=== PATIENT | female | born 1965 | race Caucasian/White ===

== ENCOUNTER → 2016-09-25 | Outpatient (CLI) | payer OTHER | LOC: MAMMO 15:41 | DX: Z12.31 Encounter for screening mammogram for malignant neoplasm of breast (principal) | CPT/HCPCS: G0202; G0279 ==

== ENCOUNTER → 2017-02-14 | Outpatient (CLI) | payer OTHER | END | disposition home or self-care (01) | LOC: LAB.O 17:11 | PROVIDERS: ATTEND Physician Assistant | DX: R19.7 Diarrhea, unspecified (principal) ==

== ENCOUNTER 2018-03-11 08:43 | Emergency (ER) | payer OTHER ==
--- NOTE | 2018-03-11 09:37 | ED.PDOC ---
History of Present Illness - General Chief Complaint: General Stated Complaint: blood in urine Time Seen by Provider: 03/11/18 09:19 Source: patient Exam Limitations: no limitations - History of Present Illness Initial Comments: 1 D HEMATURIA, DYSURIA, FREQUENCY. NO UTI IN YEARS. Timing/Duration: 24 hours Severity: moderate Improving Factors: nothing Worsening Factors: nothing Allergies/Adverse Reactions: Allergies Codeine Allergy (Verified 06/07/15 08:12) Acetaminophen [From Hydrocodone W/Acetaminophen] Adverse Reaction (Verified 06/07/15 08:12) Hydrocodone [From Hydrocodone W/Acetaminophen] Adverse Reaction (Verified 06/07/15 08:12) Home Medications: Ambulatory Orders Sulfa/Trimeth 800/160 (Ds) Tab [Bactrim DS Tab] 1 unit PO BID #6 tab 03/11/18 Review of Systems - Review of Systems Constitutional: Denies: chills, fever EENTM: States: no symptoms reported Respiratory: States: no symptoms reported Cardiology: States: no symptoms reported Gastrointestinal/Abdominal: Denies: abdominal pain, nausea, vomiting Genitourinary: States: dysuria, frequency, hematuria, pain. Denies: discharge Musculoskeletal: Denies: back pain Skin: States: no symptoms reported Neurological: States: no symptoms reported Endocrine: States: no symptoms reported Hematologic/Lymphatic: States: no symptoms reported All other Systems: Reviewed and Negative Past Medical History (General) - Patient Medical History Hx Seizures: No Hx Stroke: No Hx Dementia: No Hx Asthma: No Hx of COPD: No Hx Cardiac Disorders: No Hx Congestive Heart Failure: No Hx Pacemaker: No Hx Hypertension: No Hx Thyroid Disease: No Hx Diabetes: No Hx Gastroesophageal Reflux: Yes Hx Renal Disease: No Hx Cancer: No Hx of HIV: No Hx Hepatitis C: No Hx MRSA: No - Vaccination History Hx Tetanus, Diphtheria Vaccination: No Hx Influenza Vaccination: No Hx Pneumococcal Vaccination: No - Social History Hx Tobacco Use: No Hx Chewing Tobacco Use: No Hx Alcohol Use: No Hx Substance Use: No Hx Substance Use Treatment: No Hx Depression: No Feels Threatened In Home Enviroment: No Feels Threatened In a Relationship: No Hx Physical Abuse: No Hx Emotional Abuse: No Hx Suspected Abuse: No - Activities of Daily Living Hospice Agency (if applicable):: None - Female History Patient is a Female of Child Bearing Age (10 -59 yrs old): Yes - pt had a tubal in 1991 Patient : No Family Medical History - Family History Mother Living Status: Still Living Hx Family Cancer: Yes - breasst Hx Family;Other: thyroid Father Living Status: Age at (years of age): 57 Hx Cardiac Disease: Yes Physical Exam - Physical Exam General Appearance: Alert, Well Nourished Eye Exam: bilateral normal Ears, Nose, Throat: hearing grossly normal, normal ENT inspection Neck: non-tender, full range of motion Respiratory: lungs clear, normal breath sounds, no respiratory distress Cardiovascular/Chest: regular rate, rhythm, no murmur Peripheral Pulses: radial,right: 2+, radial,left: 2+ Gastrointestinal/Abdominal: normal bowel sounds, soft, no organomegaly, no pulsatile mass, tenderness - SUPRAPUBIC. REMAINDER NTTP. NO G/R. Rectal Exam: deferred Back Exam: no CVA tenderness Extremity: normal range of motion, normal inspection Neurologic: alert, normal mood/affect Skin Exam: normal color, warm/dry Lymphatic: no adenopathy Progress - Results/Orders Results/Orders: UTI - UA SHOWS LEUK EST, NITRITES, WBC, BACTERIA. SEND FOR UR CX. ROCEPHIN IM AND PO ABX. Departure - Departure Clinical Impression: Gross hematuria, Tachycardia UTI (urinary tract infection) Qualifiers: Urinary tract infection type: acute cystitis Hematuria presence: with hematuria Qualified Code(s): N30.01 - Acute cystitis with hematuria Disposition: Discharge to Home or Self Care Condition: Good Departure Forms: ED Discharge - Pt. Copy, Patient Portal Self Enrollment Instructions: Urinary Tract Infection, Adult (DC) Diet: resume usual diet Activity: increase activity as tolerated Referrals: Jeff Berger MD [Primary Care Provider] - 1-2 Weeks Prescriptions: Sulfa/Trimeth 800/160 (Ds) Tab [Bactrim DS Tab] 1 unit PO BID #6 tab Home Medications: Ambulatory Orders Sulfa/Trimeth 800/160 (Ds) Tab [Bactrim DS Tab] 1 unit PO BID #6 tab 03/11/18
[2018-03-11] MEDS ORDERED: cefTRIAXone SODIUM 1 GM VIAL IM ONE (09:46)
[2018-03-11] MEDS ORDERED: cefTRIAXone SODIUM 1 GM VIAL ONE (09:47)
[2018-03-11] MEDS ORDERED: LIDOCAINE 1% 2 ML VIAL INJ ONE (09:47)
[2018-03-11 10:19] VITALS: BP 131/80; TEMP 98.8; O2SAT 97
== END 2018-03-11 10:10 | disposition home or self-care (01) ==
LOC: ER 08:43
DX: N30.01 Acute cystitis with hematuria (principal); R00.0 Tachycardia, unspecified; K21.9 Gastro-esophageal reflux disease without esophagitis; Z88.5 Allergy status to narcotic agent; Z88.6 Allergy status to analgesic agent
CPT/HCPCS: 81001; 87086; J0696

== ENCOUNTER → 2019-05-12 | Outpatient (CLI) | payer OTHER | DX: Z12.31 Encounter for screening mammogram for malignant neoplasm of breast (principal) ==